=== PATIENT | male | born 1950 | race Caucasian/White ===

== ENCOUNTER 2019-06-16 15:16 | Outpatient (CLI) | payer MEDICARE, SELFPAY ==
--- NOTE | ~2019-06-16 | XR_ITS ---
EXAMINATION: XR chest 2V EXAM DATE: 06/16/2019 15:33 INDICATION: Cough. Congestion one month. TECHNIQUE: Frontal and lateral projections of the chest obtained and reviewed. Comparison is made to prior examination from 07/16/2016. FINDINGS: The lungs are clear. There are no pleural effusions. The cardiomediastinal silhouette is within normal limits. There is no pneumothorax suspected. The bones and soft tissues are unremarkab le. There is no significant interval change. IMPRESSION: Unremarkable chest x-ray exam. Reviewed, dictated and finalized at location A. OBIOLOGIST
== END 2019-06-16 15:17 | disposition home or self-care (01) ==
LOC: ANHIMG 15:20
PROVIDERS: PCP Family Medicine; Visit Provider Family Medicine
DX: R05 Cough (principal)
CPT/HCPCS: 71046

== ENCOUNTER 2020-12-12 00:26 | Day surgery (SDC) | payer MEDICARE, SELFPAY ==
[2020-12-03 10:29] VITALS: BMI 31.6
[2020-12-12 08:43] VITALS: BP 149/102; PULSE 84; RESP 16; TEMP 36.4; O2SAT 97; BMI 31.3
--- NOTE | 2020-12-12 08:47 | WPDGICN ---
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 Plan is for screening EGD at this time and this is suggested at 3 year intervals at this time. (2) Encounter for screening colonoscopy: Code(s): Z12.11 - Encounter for screening for malignant neoplasm of colon Status: Acute Assessment and Plan: Screening colonoscopy advised is been approximately 10 years since last exam. Further recommendations will be given after endoscopy. GI Consult Note Consult date/time: 12/12/20 08:47 HPI: Kenn Hogan is a 69 year old male Presents for follow-up screening examinations. Patient diagnosed with Cleveland's esophagus approximately 4 years ago. He denies any heartburn. He presents today for surveillance examination. His current weight appetite bowel movements are normal. He denies abdominal pain. He has had no bleeding. Family history is significant for a brother who has had esophageal cancer in another brother who has Cleveland's esophagus. EGD will be performed today. Patient also presents for screening colonoscopy. He states his weight appetite bowel movements are normal. Has been approximately 9 or 10 years since last endoscopy. Review of Systems Review of Systems: All systems reviewed & are unremarkable except as noted in HPI and below PMFSH Past Medical History Medical History Chesty cough Surgical History Surgical History H/O endoscopy History of cholecystectomy 2019 History of root canal procedure History of tonsillectomy Family History Family History Mother Family history of lung cancer, Onset Age: 70 Father Family history of emphysema, Onset Age: 82 Family history of chronic obstructive pulmonary disease, Onset Age: 82 Sibling Family history of malignant neoplasm of esophagus Social History Social History Smoking status: Never smoker Smoking end date: 05/10/1968 Alcohol intake: never Alcohol use details: Monthly Living arrangements: with family Spiritual care concerns: No Meds Home Medications and Allergies Home Medications Medication Instructions Recorded Confirmed Type cholecalciferol (vitamin D3) 25 25 mcg PO DAILY 11/07/19 12/12/20 History mcg (1,000 unit) capsule docusate sodium 100 mg capsule 100 mg PO DAILY PRN 11/07/19 12/12/20 History allopurinol 100 mg PO DAILY 12/03/20 12/12/20 History pantoprazole 40 mg PO DAILY 12/03/20 12/12/20 History vit C,G-Wj-czedf-lutein-zeaxan 1 tablet PO DAILY 12/03/20 12/12/20 History [PreserVision AREDS-2] Allergies Allergy/AdvReac Type Severity Reaction Status Date / Time No Known Allergies Allergy Verified 12/12/20 08:38 Vital Signs Vital Signs - 24 hr 12/12/20 08:43 Temperature 97.5 F L Pulse Rate 84 Respiratory Rate 16 Blood Pressure 149/102 H Pulse Oximetry 97 Exam Narrative: Physical exam reveals patient to be alert. Vital signs stable. HEENT exam is unremarkable. Patient is anicteric. Lungs are clear to auscultation and percussion. Heart is without murmur or extra sounds. Abdominal exam bowel sounds are present soft nontender with no organomegaly. Digital external rectal exam is normal.
[2020-12-12] MEDS: LACTATED RINGERS 1,000 ML 150 ML IV CONT (08:56)
[2020-12-12 09:00] VITALS: BP 131/75
--- NOTE | 2020-12-12 09:19 | WPDANESEPPF ---
Anes - Initial Pre Proc Eval Procedure: Operation Date: 12/12/20 10:00 Proposed Procedures p Esophagogastroduodenoscopy & Screening Colonoscopy - Mauro Anglin MD Date/Time: 12/12/20 09:19 Surgeon: Mauro Anglin MD Pre Op Diagnosis: neoplasm screening, Cleveland's esophagus Patient Data Age: 69 Gender: M Height: 1.78 m Weight: 99 kg Last Vital Signs Temp 36.4 C L 12/12/20 08:43 Pulse 84 12/12/20 08:43 Resp 16 12/12/20 08:43 BP 131/75 12/12/20 09:00 Pulse Ox 97 12/12/20 08:43 Allergies Allergy/AdvReac Type Severity Reaction Status Date / Time No Known Allergies Allergy Verified 12/12/20 08:38 Home Medications Medication Instructions Recorded Confirmed Type cholecalciferol (vitamin D3) 25 25 mcg PO DAILY 11/07/19 12/12/20 History mcg (1,000 unit) capsule docusate sodium 100 mg capsule 100 mg PO DAILY PRN 11/07/19 12/12/20 History allopurinol 100 mg PO DAILY 12/03/20 12/12/20 History pantoprazole 40 mg PO DAILY 12/03/20 12/12/20 History vit C,T-Hm-wzrcz-lutein-zeaxan 1 tablet PO DAILY 12/03/20 12/12/20 History [PreserVision AREDS-2] Patient hx anesthesia problems: none Family hx anesthesia problems: none PMFSH Past Medical History Medical History Chesty cough Surgical History Surgical History H/O endoscopy History of cholecystectomy 2019 History of root canal procedure History of tonsillectomy Family History Family History Mother Family history of lung cancer, Onset Age: 70 Father Family history of emphysema, Onset Age: 82 Family history of chronic obstructive pulmonary disease, Onset Age: 82 Sibling Family history of malignant neoplasm of esophagus Social History Social History Smoking status: Never smoker Smoking end date: 05/10/1968 Alcohol intake: never Alcohol use details: Monthly Living arrangements: with family Spiritual care concerns: No Anes - Eval Final PreProcedure Day of Procedure 12/12/20 09:19 Patient weight: obese Heart: regular rate and rhythm Lungs: clear to auscultation Airway: Mallampati scale class II Neurological: alert and oriented Last oral intake: >/= 8 hours ASA classification: II Emergent: no Anesthetic plan: proceed Anesthesia type and monitoring: general GIVS and standard monitoring Informed Consent: The patient's anesthetic plan and its attendant risks and benefits were discussed with the patient/family/POA. Questions were solicited and answers provided to the satisfaction of the patient/family/POA.
[2020-12-12 10:18] VITALS: BP 78/56; PULSE 70; RESP 14; O2SAT 94
[2020-12-12 10:28] VITALS: BP 108/51; PULSE 64; RESP 18; O2SAT 96
[2020-12-12 10:38] VITALS: BP 112/69; PULSE 66; RESP 20; O2SAT 96
== END 2020-12-12 10:54 | disposition home or self-care (01) ==
PROVIDERS: PCP Family Medicine; Visit Provider Internal Medicine Gastroenterology
PROC: 0DJ08ZZ Inspection of Upper Intestinal Tract, Via Natural or Artificial Opening Endoscopic (ICD-10-PCS; CPT 43235; principal; 2020-12-12 10:00)
DX: K22.70 Barrett's esophagus without dysplasia (principal); Z12.11 Encounter for screening for malignant neoplasm of colon; K62.1 Rectal polyp; K57.30 Diverticulosis of large intestine without perforation or abscess without bleeding; K64.8 Other hemorrhoids; E66.9 Obesity, unspecified; Z68.31 Body mass index [BMI] 31.0-31.9, adult
CPT/HCPCS: 43239; 45385; 88305; J2704; J7120

== ENCOUNTER 2023-12-04 11:54 | Emergency (ER) | payer MEDICARE, SELFPAY ==
--- NOTE | 2023-12-04 12:06 | ED.SKABFB ---
HPI - Skin/Abscess/Foreign Bdy General Chief complaint: Wound/Laceration Stated complaint: BLISTER ON R FOOT/RASH ON L FOREARM Time Seen by Provider: 12/04/23 12:23 Source: patient and RN notes reviewed Mode of arrival: ambulatory Limitations: no limitations History of Present Illness HPI narrative: 72-year-old male presents with concern of for a rash. Reports he got a small rash to the blister on his right foot after working in the yard with his sandals yesterday. He now has a patch of rash on his left arm. He denies swollen lips, swollen tongue, trouble breathing. Use loza-bju-kxzpait poison norris medicine without relief complaint: rash Related Data Home Medications Medication Instructions Recorded Confirmed cholecalciferol (vitamin D3) 25 25 mcg PO DAILY 11/07/19 12/04/23 mcg (1,000 unit) capsule docusate sodium 100 mg capsule 100 mg PO DAILY PRN Constipation 11/07/19 12/04/23 (Colace) vit C 250 mg-vit E 90 mg-zinc 40 1 tablet PO DAILY 12/03/20 12/04/23 mg-copper 1 he-npqtfb-jopsht capsule (PreserVision AREDS-2) terbinafine HCl 250 mg tablet 250 mg PO DAILY 07/23/23 12/04/23 Allergies Allergy/AdvReac Type Severity Reaction Status Date / Time No Known Allergies Allergy Verified 12/04/23 12:14 Review of Systems Review of Systems: CONSTITUTIONAL: Denies malaise, chills, sweats, or fever. EYES: Denies redness, or discharge. ENT: Denies rhinorrhea, congestion, swollen lips, swollen tongue CARDIOVASCULAR: Denies chest pain, palpitations, or edema. RESPIRATORY: Denies cough or dyspnea. GASTROINTESTINAL: Denies abdominal pain, nausea, vomiting SKIN: Reports rash with blisters on his right foot and rash with small blisters on his left arm MUSCULOSKELETAL: Denies joint pain or myalgia. NEUROLOGIC: Denies headache. All systems reviewed & are unremarkable except as noted in HPI and below PMFSH Past Medical History Medical History Chesty cough Surgical History Surgical History H/O endoscopy History of cholecystectomy 2019 History of root canal procedure History of tonsillectomy Family History Family History Mother Family history of lung cancer, Onset Age: 70 Father Family history of emphysema, Onset Age: 82 Family history of chronic obstructive pulmonary disease, Onset Age: 82 Sibling Family history of malignant neoplasm of esophagus Social History Social History Smoking status: Former smoker Smoking end date: 05/10/1968 Alcohol intake: never Alcohol use details: Monthly Substance use type: does not use Lack of Transportation: No Lack of Food: Never True Current Housing: I Have Housing Concerned About Future Housing: No Difficulty Paying Gas/Electric Bills: No Difficulty Paying for Meds: No Currently Unemployed: No Education: Bachelor's Degree Difficulty w/ Childcare or Family Care: No Living arrangements: with family Spiritual care concerns: No Comments At time of signature, agree with nursing past medical, surgical, social and family history. There is no relevant family history pertinent to the presenting complaint Exam Narrative: GENERAL: Well-appearing, well-nourished, and in no acute distress. HEAD: Normocephalic, atraumatic. EYES: PERRLA, conjunctivae clear, and EOMI. ENT: Mucous membranes moist. Oropharynx without edema, erythema or lesions. NECK: Supple. No lymphadenopathy CHEST: Clear to auscultation. No respiratory distress. HEART: Regular rate and rhythm. SKIN: Warm, dry. Patches of erythema with small vesicles noted to the left forearm, blister with fluid drained noted to the right foot between the 1st and 2nd digits NEURO: Alert and oriented x3. PSYCH: Normal mood and affect Course Cours
[2023-12-04 12:16] VITALS: BP 141/86; PULSE 74; RESP 16; TEMP 37.1; O2SAT 97
== END 2023-12-04 12:50 | disposition home or self-care (01) ==
PROVIDERS: Emergency Provider Nurse Practitioner; PCP Emergency Medicine
DX: L25.9 Unspecified contact dermatitis, unspecified cause (principal); Z87.891 Personal history of nicotine dependence
CPT/HCPCS: 99213; G0463

== ENCOUNTER 2024-01-05 15:46 | Outpatient (CLI) | payer MEDICARE, SELFPAY ==
--- NOTE | ~2024-01-05 | US_ITS ---
EXAMINATION: US soft tissue abdomen DATE: 01/05/2024 15:59 INDICATION: Right lower quadrant abdominal swelling. Lump. TECHNIQUE: Multiple grayscale and Doppler ultrasound images of the abdomen were obtained. COMPARISON: CT abdomen and pelvis FINDINGS: There is no abnormal mass in the patient's areas of concern in right inguinal region and ri ght flank and back. IMPRESSION: 1. No abnormal mass in the patient's areas of concern in right inguinal region and right flank and ba ck. Reviewed, dictated and finalized at location A. IMPRESSION: 1. No abnormal mass in the patient's areas of concern in right inguinal region and right flank and back.
== END 2024-01-05 15:47 ==
LOC: GOSHIMG 15:46
PROVIDERS: PCP Emergency Medicine; Visit Provider Emergency Medicine
DX: R19.03 Right lower quadrant abdominal swelling, mass and lump (principal)
CPT/HCPCS: 76705

== ENCOUNTER 2024-02-29 03:28 | Day surgery (SDC) | payer MEDICARE, SELFPAY ==
[2024-02-16 10:59] VITALS: BMI 30.6
[2024-02-29 10:20] VITALS: BP 141/78; PULSE 75; RESP 17; TEMP 35.9; O2SAT 94; BMI 30.9
[2024-02-29] MEDS: LACTATED RINGERS 1,000 ML 150 ML IV CONT (10:28)
--- NOTE | 2024-02-29 10:37 | PM.HPGS ---
History of Present Illness History of Present Illness Consent: Risks, benefits, and alternatives have been discussed and questions answered. Patient agrees to proceed with procedure. Chief complaint: Thomason's Esophagus Narrative: Kenn Hogan is a 73 year old male with thomason's on ppi, doing ok. Last egd 2020, no dysplasia. Review of Systems Review of Systems: All systems reviewed & are unremarkable except as noted in HPI and below PMFSH Past Medical History Medical History Chesty cough Surgical History Surgical History H/O endoscopy History of cholecystectomy 2019 History of root canal procedure History of tonsillectomy Family History Family History Mother Family history of lung cancer, Onset Age: 70 Father Family history of emphysema, Onset Age: 82 Family history of chronic obstructive pulmonary disease, Onset Age: 82 Sibling Family history of malignant neoplasm of esophagus Social History Social History Smoking status: Never smoker Smoking end date: 05/10/1968 Alcohol intake: never Alcohol use details: Monthly Substance use type: does not use Lack of Transportation: No Lack of Food: Never True Current Housing: I Have Housing Concerned About Future Housing: No Difficulty Paying Gas/Electric Bills: No Difficulty Paying for Meds: No Currently Unemployed: No Education: Bachelor's Degree Difficulty w/ Childcare or Family Care: No Living arrangements: with family Spiritual care concerns: No Meds Home Medications and Allergies Home Medications Medication Instructions Recorded Confirmed Type cholecalciferol (vitamin D3) 25 25 mcg PO DAILY 11/07/19 02/29/24 History mcg (1,000 unit) capsule docusate sodium 100 mg capsule 100 mg PO DAILY PRN Constipation 11/07/19 02/29/24 History (Colace) vit C 250 mg-vit E 90 mg-zinc 40 1 tablet PO DAILY 12/03/20 02/29/24 History mg-copper 1 uy-xlnokp-kgwekp capsule (PreserVision AREDS-2) nystatin 100,000 unit/gram topical 1 applic topical BID #60 grams 01/22/23 02/29/24 Rx powder terbinafine HCl 250 mg tablet 250 mg PO DAILY 07/23/23 02/29/24 History allopurinol 100 mg tablet 100 mg PO DAILY #90 tabs 12/20/23 02/29/24 Rx pantoprazole 40 mg tablet,delayed See Rx Instructions .Route 12/20/23 02/29/24 Rx release .COMPLEX #90 tabs Allergies Allergy/AdvReac Type Severity Reaction Status Date / Time No Known Allergies Allergy Verified 02/29/24 10:18 Vital Signs Vital Signs - 24 hr 02/29/24 10:20 Temperature 96.7 F L Pulse Rate 75 Respiratory Rate 17 Blood Pressure 141/78 H Pulse Oximetry 94 Oxygen Delivery Room Air Exam Const: General: comfortable and no acute distress HENMT: Face/Nose/Sinus: Normal nares present Eyes: General: appearance normal, both eyes and all related structures Neck: Neck: no JVD Resp: Auscultation: clear to auscultation bilaterally Cardio: Rate: regular rate Rhythm: regular rhythm GI: Inspection: non-distended GI Palp: Yes Soft to palpation Skin: General skin exam: normal color Neuro: General: gait normal Speech: normal speech Extrem: General: normal to inspection Psych: Mental Status: mental status grossly normal Assessment and Plan Assessment and plan (1) Thomason's esophagus without dysplasia: Code(s): K22.70 - Thomason's esophagus without dysplasia Status: Acute Assessment and Plan: egd with bx on ppi
--- NOTE | 2024-02-29 10:39 | WPDANESEPPF ---
Anes - Initial Pre Proc Eval Procedure: Operation Date: 02/29/24 11:30 Proposed Procedures p Esophagogastroduodenoscopy - Cuauhtemoc Bain MD Date/Time: 02/29/24 10:39 Surgeon: Cuauhtemoc Bain MD Pre Op Diagnosis: Cleveland's Esophagus Patient Data Age: 73 Gender: M Height: 1.78 m Weight: 97.9 kg Last Vital Signs Temp 35.9 C L 02/29/24 10:20 Pulse 75 02/29/24 10:20 Resp 17 02/29/24 10:20 BP 141/78 H 02/29/24 10:20 Pulse Ox 94 02/29/24 10:20 O2 Del Method Room Air 02/29/24 10:20 Allergies Allergy/AdvReac Type Severity Reaction Status Date / Time No Known Allergies Allergy Verified 02/29/24 10:18 Home Medications Medication Instructions Recorded Confirmed Type cholecalciferol (vitamin D3) 25 25 mcg PO DAILY 11/07/19 02/29/24 History mcg (1,000 unit) capsule docusate sodium 100 mg capsule 100 mg PO DAILY PRN Constipation 11/07/19 02/29/24 History (Colace) vit C 250 mg-vit E 90 mg-zinc 40 1 tablet PO DAILY 12/03/20 02/29/24 History mg-copper 1 cy-rppqcz-nuddpw capsule (PreserVision AREDS-2) nystatin 100,000 unit/gram topical 1 applic topical BID #60 grams 01/22/23 02/29/24 Rx powder terbinafine HCl 250 mg tablet 250 mg PO DAILY 07/23/23 02/29/24 History allopurinol 100 mg tablet 100 mg PO DAILY #90 tabs 12/20/23 02/29/24 Rx pantoprazole 40 mg tablet,delayed See Rx Instructions .Route 12/20/23 02/29/24 Rx release .COMPLEX #90 tabs Patient hx anesthesia problems: none Family hx anesthesia problems: none Results Review: All pre-operative results and documents have been reviewed as part of the pre-operative evaluation. [facility] Past Medical History Medical History (Updated 02/29/24 @ 10:40 by Addison Watts MD) Chesty cough Obesity Surgical History Surgical History H/O endoscopy History of cholecystectomy 2019 History of root canal procedure History of tonsillectomy Family History Family History Mother Family history of lung cancer, Onset Age: 70 Father Family history of emphysema, Onset Age: 82 Family history of chronic obstructive pulmonary disease, Onset Age: 82 Sibling Family history of malignant neoplasm of esophagus Social History Social History (Updated 02/29/24 @ 10:40 by Addison Watts MD) Smoking status: Former smoker Smoking end date: 05/10/1968 Alcohol intake: never Alcohol use details: Monthly Substance use type: does not use Lack of Transportation: No Lack of Food: Never True Current Housing: I Have Housing Concerned About Future Housing: No Difficulty Paying Gas/Electric Bills: No Difficulty Paying for Meds: No Currently Unemployed: No Education: Bachelor's Degree Difficulty w/ Childcare or Family Care: No Living arrangements: with family Spiritual care concerns: No Anes - Eval Final PreProcedure Day of Procedure 02/29/24 10:39 Patient weight: obese Heart: regular rate and rhythm Lungs: clear to auscultation Airway: Mallampati scale class II Neurological: alert and oriented Last oral intake: >/= 8 hours ASA classification: II Emergent: no Anesthetic plan: proceed Anesthesia type and monitoring: general GIVS and standard monitoring Results Review: All pre-operative results and documents have been reviewed as part of the pre-operative evaluation. Informed Consent: The patient's anesthetic plan and its attendant risks and benefits were discussed with the patient/family/POA. Questions were solicited and answers provided to the satisfaction of the patient/family/POA.
[2024-02-29 10:51] VITALS: BP 115/69; PULSE 75; RESP 18; O2SAT 94
[2024-02-29 11:01] VITALS: BP 109/65; PULSE 72; RESP 18; O2SAT 95
== END 2024-02-29 11:24 | disposition home or self-care (01) ==
PROVIDERS: Visit Provider Internal Medicine Gastroenterology
PROC: 0DJ08ZZ Inspection of Upper Intestinal Tract, Via Natural or Artificial Opening Endoscopic (ICD-10-PCS; CPT 43235; principal; 2024-02-29 11:30)
DX: K22.70 Barrett's esophagus without dysplasia (principal); K21.00 Gastro-esophageal reflux disease with esophagitis, without bleeding; K44.9 Diaphragmatic hernia without obstruction or gangrene; E66.9 Obesity, unspecified; Z68.31 Body mass index [BMI] 31.0-31.9, adult; Z98.890 Other specified postprocedural states; Z90.49 Acquired absence of other specified parts of digestive tract; Z87.891 Personal history of nicotine dependence; Z80.1 Family history of malignant neoplasm of trachea, bronchus and lung; Z80.0 Family history of malignant neoplasm of digestive organs
CPT/HCPCS: 43239; 88305; J2704; J7120